=== PATIENT | male | born 1960 | race Hispanic/Latino ===

== ENCOUNTER 2019-03-08 01:19 | Emergency (ER) | payer MEDICARE | END 2019-03-08 01:36 | disposition home or self-care (01) | LOC: EDH 01:19 | DX: Z02.83 Encounter for blood-alcohol and blood-drug test (principal) ==

== ENCOUNTER 2019-03-08 03:04 | Emergency (ER) | payer MEDICARE | END 2019-03-08 03:58 | LOC: EDH 03:04 | DX: F10.129 Alcohol abuse with intoxication, unspecified (principal) ==